=== PATIENT | female | born 1985 | race Caucasian/White ===

== ENCOUNTER 2017-08-22 12:08 | Emergency (ER) | payer MEDICARE ==
[2017-08-22] MEDS ORDERED: levETIRAcetam 500 MG TAB PO STA (12:53)
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
[2017-08-22 13:11] VITALS: RESP 20
[2017-08-22 15:11] VITALS: BP 140/87; PULSE 72; TEMP 98.7
== END 2017-08-22 15:10 | disposition home or self-care (01) ==
LOC: EC 12:08
DX: T76.21XA Adult sexual abuse, suspected, initial encounter (principal); G40.909 Epilepsy, unspecified, not intractable, without status epilepticus; Z76.0 Encounter for issue of repeat prescription; S39.93XA Unspecified injury of pelvis, initial encounter; F17.200 Nicotine dependence, unspecified, uncomplicated; Z88.0 Allergy status to penicillin; Z88.1 Allergy status to other antibiotic agents; Z88.8 Allergy status to other drugs, medicaments and biological substances; Z91.018 Allergy to other foods; Z91.040 Latex allergy status
CPT/HCPCS: 99285